=== PATIENT | male | born 1995 | race Caucasian/White ===

== ENCOUNTER 2019-05-08 17:55 | Emergency (ER) | payer SELFPAY ==
[~2019-05-08] VITALS: Ht 175.3 cm; Wt 65.3 kg
[2019-05-08 18:04] VITALS: BP 102/69
--- NOTE | 2019-05-08 18:10 | NUR ---
Note undone in EDM - 05/08/19 at 1852 by JOHANNA PT PRESENTS TO ER, WITH RIGHT TESTICLE PAIN X 3WEEKS. DENIES ANY INJURIES, TRAUMA, OR FALLS. DENIES NAUSEA, VOMITING, DIARRHEA, FEVER, CHILLS, BURNING WITH URINATION, OR DISCHARGE, OR BLOOD FROM THE PENIS. PT STATES HE FEELS A PEA-SIZED BULGE IN THE RIGHT SCROTAL SAC. AFTER EXAMINATION OF THE SCROTAL SAC, NO REDNESS OR IRRITATION, OR SWELLING IS NOTED. UPON PALPATION A SMALL WORM LIKE STRUCTURE IS FELT ON THE INTERIOR PORTION OF THE RIGHT SCROTAL SAC. PT STATES THERE IS PAIN WITH PALPATION, RATED AT 7/10. DOCTOR NOTIFIED. WILL CONTINE TO MONITOR. BED RAIL X1. NO PMH ALLERGIES: AMOXICILLIN
--- NOTE | 2019-05-08 18:11 | NUR ---
PT AMB TO BED 3.
--- NOTE | 2019-05-08 18:15 | NUR ---
PT PRESENTS TO ER, WITH RIGHT TESTICLE PAIN X 3WEEKS. DENIES ANY INJURIES, TRAUMA, OR FALLS. DENIES NAUSEA, VOMITING, DIARRHEA, FEVER, CHILLS, BURNING WITH URINATION, OR DISCHARGE, OR BLOOD FROM THE PENIS. PT STATES HE FEELS A PEA-SIZED BULGE IN THE RIGHT SCROTAL SAC. AFTER EXAMINATION OF THE SCROTAL SAC, NO REDNESS OR IRRITATION, OR SWELLING IS NOTED. UPON PALPATION A SMALL WORM LIKE STRUCTURE IS FELT ON THE INTERIOR PORTION OF THE RIGHT SCROTAL SAC. PT STATES THERE IS PAIN WITH PALPATION, RATED AT 7/10. DOCTOR NOTIFIED. WILL CONTINE TO MONITOR. BED RAIL X1. NO PMH ALLERGIES: AMOXICILLIN
--- NOTE | 2019-05-08 18:55 | NUR ---
U/S TECH AT BEDSIDE
--- NOTE | 2019-05-08 19:10 | NUR ---
RECIVED REPORT FROM JENNA OBANDO. CONTINUATION OF CARE.
--- NOTE | 2019-05-08 19:13 | NUR ---
REPORT TO GISELLA AVALOSPOSTDOCTORAL SCIENTIST OF CARE AT THIS TIME
--- NOTE | 2019-05-08 19:15 | NUR ---
PT AAO X4. RESPIRATIONS ARE EVEN AND UNLABORED. SKIN IS WARM AND DRY TO TOUCH. PT RESTING IN BED SITTING UPRIGHT WITH EYES OPEN. PT STATING TESTICULAR PAIN IS 4/10 AT THIS TIME. PT STATES, "PAIN IS OKAY TO DEAL WITH." PT DENIES WANTING PAIN MEDICATION AT THIS TIME. MOTHER AT BEDSIDE AND IS [place] SPEAKING.
--- NOTE | 2019-05-08 20:10 | NUR ---
PT AMBULATED TO BED TO RESTROOM WITH STEADY GAIT.
--- NOTE | 2019-05-08 20:25 | NUR ---
PT AAO X4. RESPIRATIONS ARE EVEN AND UNLABORED. SKIN IS WARM AND DRY TO TOUCH. PT STATES PAIN IS 2/10 IN TESTICULAR PAIN BUT "IT IS MANAGEABLE." MOTHER AT BEDSIDE.
[2019-05-08 20:56] VITALS: BP 127/75
== END 2019-05-08 20:57 | disposition home or self-care (01) ==
LOC: MED 17:55
DX: N43.3 Hydrocele, unspecified (principal)
CPT/HCPCS: 76870; 81002; 99284; Q0092